=== PATIENT | male | born 1995 | race African-American/Black ===

== ENCOUNTER 2020-09-27 17:03 | Emergency (ER) | payer SELFPAY ==
[2020-09-27 17:20] VITALS: BP 127/84; PULSE 87; RESP 16; O2SAT 97; BMI 35.9
--- NOTE | 2020-09-27 18:00 | PC.NURSE ---
PT ASKING TO LEAVE BECAUSE HIS NOSE HAD STOPPED BLEEDING. PT ASKED TO WAIT FOR MEDICAL SXAM. PT AGREEABLE.
--- NOTE | 2020-09-27 18:33 | ED_ITS ---
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 It eventually stopped on its own. Patient has had similar nosebleed a few weeks ago. He has never seen an ear nose and throat doctor. He notes he has chronic nasal congestion and postnasal drip which he attributes to working in a freezer. He denies any history of high blood pressure. He denies any headache or shortness of breath. Related Data Previous Rx's Medication Instructions Recorded fkqhulxophcwpjg-kuyprgwvi-EK 7.5 ml PO Q4-6H PRN #473 ml 09/27/20 [Bromfed DM] oxymetazoline [Afrin 4 spray INTRANASAL ONCE PRN 1 Days 09/27/20 (oxymetazoline)] #15 ml Allergies Allergy/AdvReac Type Severity Reaction Status Date / Time No Known Allergies Allergy Verified 09/27/20 17:22 Review of Systems Constitutional: Constitutional: Denies fever(s) Eyes: Eyes: Reports no additional eye complaints ENT: Reports epistaxis and Reports nasal congestion Cardiovascular: Cardiovascular: Denies dyspnea Respiratory: Respiratory: Reports cough and Denies dyspnea Neurologic: Denies Sensory deficit (Neuro) [facility] Past Medical History Medical History (Updated 09/27/20 @ 18:14 by Scott Sharif MD) Patient denies significant medical history Social History Social History Advance Directives: No Advance Directives Information Provided: No Physical Exam Vital Signs: Vital Signs: Last Vital Signs Pulse 87 09/27/20 17:20 Resp 16 09/27/20 17:20 BP 127/84 09/27/20 17:20 Pulse Ox 97 09/27/20 17:20 Body Mass Index 35.9 Const: General: cooperative, no acute distress and alert Orientation/consciousness: patient oriented x3 HENMT: Head: Yes normal to inspection General nose exam: Normal external nose present and Epistaxis present (No current bleeding, irritated mucosa in the area of Hesselbach's plexus R) on the right Mouth: Normal oral and palatal mucosa present Throat: Yes posterior oropharynx normal (No blood in the pharynx) Eyes: General: appearance normal, both eyes and all related structures Eyelids: Yes eyelids normal Conjunctivae: conjunctivae normal Pupils: Equal, round and reactive pupils present Neck: Neck: Yes normal visual inspection and Yes supple Chest: Chest palpation & inspection: normal inspection of the chest Resp: Effort & Inspection: normal respiratory effort Auscultation: clear to auscultation bilaterally Cardio: Rate: regular rate Rhythm: regular rhythm Heart sounds: S1 normal heart sound present, S2 normal heart sound present, no gallops, no murmurs and no rubs GI: Palpation (GI): Soft to palpation, nontender and Other GI palpation findings present (Non-distended) Auscultation: normal bowel sounds Skin: General skin exam: no rashes or lesions noted Neuro: General: patient oriented x3, no focal motor deficits and CN's II-XI intact bilaterally Cranial nerves: Yes Equal, round and reactive pupils present Cognition (Neuro): normal cognition Motor exam (neuro): 5/5 motor strength present throughout Sensory Exam: No Sensory deficit (Neuro) Extrem: General: Yes normal to inspection and Yes no pedal edema Psych: Appearance: grossly normal Affect: normal affect MDM - Epistaxis MDM Narrative Medical decision making narrative: Patient with an anterior nosebleed on the right, has chronic nasal symptoms due to working in a freezer. Hemorrhage commanding the patient tried using Afrin spray after gently blowing his nose if he has a nose bleed, then applying direct pressure for 20 minutes. Also prescribing and Bromfed to use for his chronic congestion and cough. No active bleeding on my exam either in the nose or down the nasopharynx Discharge Plan Discharge Clinical Impression: Epistaxis, Chronic nasal congestion Patient Disposition: Home, Self-Care Instructions: Decongestant/Expectorant (By mouth), Nosebleed (ED) Additional Instructions: If bleeding recurs from her nose, gently blow your nose and spray 4 sprays of Afrin into the nose, then pinch it without letting up for 20 minutes. Use the Bromfed as prescribed for cough and congestion. Follow-up with an Ear Nose Throat physician if you have persistent intermittent nose bleeds. Prescriptions: New wlnafpbswxvzhyo-mywduslyi-RZ [Bromfed DM] 2-30-10 mg/5 mL syrup 7.5 ml PO Q4-6H PRN (Reason: sinus symptoms) Qty: 473 RF: 0 Afrin (oxymetazoline) 0.05 % mist 4 spray intranasal ONCE PRN (Reason: Nose bleed) 1 Days Qty: 15 RF: 0 Interventions: ED Discharge Assessment Last Done: 09/27/20 18:22 Discharge Date/Time: 09/27/20 18:31
== END 2020-09-27 18:31 | disposition home or self-care (01) ==
PROVIDERS: Emergency Provider Emergency Medicine
DX: R04.0 Epistaxis (principal); R09.81 Nasal congestion
CPT/HCPCS: 99283

== ENCOUNTER 2020-10-20 21:27 | Emergency (ER) | payer OTHER, SELFPAY ==
--- NOTE | ~2020-10-20 | XR_ITS ---
EXAMINATION: XR CHEST CLINICAL INFORMATION: Cough COMPARISON: None TECHNIQUE: Frontal portable view of the chest was obtained. 10:25 PM FINDINGS: No significant abnormality is noted involving the heart, lungs, mediastinum, bony thorax or soft tissues. XR/XR chest 1V IMPRESSION: Unremarkable examination.
[2020-10-20 22:31] VITALS: BP 152/83; PULSE 81; RESP 18; TEMP 36.8; O2SAT 100; BMI 34.7
[2020-10-20 23:03] LABS: COVID-19 Test Negative (Negative)
--- NOTE | 2020-10-21 00:16 | ED_ITS ---
HPI - URI/Sore Throat General Chief Complaint: Upper Respiratory Symptoms Stated Complaint: cough Source: patient Mode of arrival: ambulatory Limitations: no limitations History of Present Illness HPI Narrative: 25-year-old male with no significant past medical history presents with upper respiratory symptoms for approximately 1 day. States to have a productive cough with thick yellow mucus, intermittent fevers and chills. Patient has not been vaccinated for COVID and is requesting COVID testing at this time. Patient does not report any other symptoms. Denies chest pain or pressure, palpitations, shortness of breath, shortness of breath on exertion, hemoptysis, abdominal pain, abdominal distention, nausea, vomiting, diarrhea, constipation, dysuria, hematuria, and edema. MD elicited complaint: fever, cough and nasal congestion Onset (ago): day(s) (One) Consistency: constant Severity: moderate Description of mucous: watery and yellow Able to tolerate fluids by mouth: Yes Exacerbating factors: exertion Relieving factors: nothing Context: sick contacts Associated symptoms: fever, chills, myalgias, nasal congestion and cough Treatments prior to arrival: none Related Data Previous Rx's Medication Instructions Recorded wkjdrjijfiimdxe-jjzaemwtbwckflp-RG 7.5 ml PO Q4-6H PRN #473 ml 09/27/20 2 mg-30 mg-10 mg/5 mL oral syrup (Bromfed DM) oxymetazoline 0.05 % nasal mist 4 spray INTRANASAL ONCE PRN 1 Days 09/27/20 (Afrin (oxymetazoline)) #15 ml benzonatate 100 mg capsule 100 mg PO TID PRN #30 cap 10/21/20 (Tesmarcinon Donna) Allergies Allergy/AdvReac Type Severity Reaction Status Date / Time No Known Allergies Allergy Verified 10/20/20 22:31 Review of Systems Review of Systems: Constitutional: positive Fever, positive Chills, positive fatigue, positive Malaise ENT/Mouth: positive sore throat, positive runny nose Eyes: No Discharge Cardiovascular: No Chest Pain, No SOB Respiratory: Positive Cough, positive Sputum, No Wheezing, No Smoke Exposure, No Dyspnea Gastrointestinal: No Nausea, No Vomiting, No Diarrhea Genitourinary: no irregular bleeding, No Dysuria, No Urinary Frequency, No Hematuria, No Urinary Incontinence, No Urgency, No Flank Pain, Musculoskeletal: positive Myalgia Skin: No rash Neuro: No Headache Yes all other systems are reviewed and are negative [facility] Past Medical History Attestation statement: The following information was validated with the patient. Medical History (Updated 10/21/20 @ 00:24 by Viky Barker NP) Patient denies significant medical history Social History Social History Advance Directives: No Physical Exam Vital Signs: Vital Signs: Last Vital Signs Temp 98.3 F 10/20/20 22:31 Pulse 81 10/20/20 22:31 Resp 18 10/20/20 22:31 BP 152/83 H 10/20/20 22:31 Pulse Ox 100 10/20/20 22:31 Body Mass Index 34.7 Appearance: Alert. Oriented X3. Mild distress. Appears tired. Eyes: Pupils equal, round and reactive to light. Conjunctiva non erythematous, sclera nonicteric. ENT: Pharynx normal. Moist mucous membranes. Neck: Normal inspection. Neck supple. No cervical lymphadenopathy noted. CVS: Normal heart rate and rhythm. Pulses normal. Respiratory: No respiratory distress. Lung sounds clear to auscultation all lobes. Abdomen: Soft and nontender. Skin: Skin warm and dry. Normal skin color. Normal skin turgor. Extremities: No lower extremity edema. Gait well balanced well coordinated. Strength 5/5 to all extremities. Neuro: No motor deficit. No sensory deficit. Cranial nerves 2-12 intact. No focal neural deficits. Course Course Course Narrative: 25-year-old male presents with upper respiratory symptoms. Requesting COVID-19 testing., patient is afebrile, appears nontoxic, alert oriented x4. COVID-19 test is negative. Chest x-ray is negative. Plan of care is to discharge home with supportive measures. Patient verbalized understanding of and agrees to plan of care discharge home. MDM - URI/Sore Throat Differential Diagnosis Differential diagnosis: Likely upper respiratory infection, sinusitis, viral infection, bronchitis, influenza and pharyngitis Medical Records Attestation: I reviewed the patient's medical records. Lab Data Attestation: I reviewed the patient's lab results. Labs: Lab Results 10/20/20 Range/Units 22:42 COVID-19 (APRYL) Negative (Negative) COVID-19 Clin Com See Note Imaging Data Chest x-ray: Attestation: I personally reviewed and interpreted this imaging study as follows: Radiologist's impression: EXAMINATION: XR CHEST CLINICAL INFORMATION: Cough COMPARISON: None TECHNIQUE: Frontal portable view of the chest was obtained. 10:25 PM FINDINGS: No significant abnormality is noted involving the heart, lungs, mediastinum, bony thorax or soft tissues. XR/XR chest 1V IMPRESSION: Unremarkable examination. ? Discharge Plan Discharge Clinical Impression: Viral infection Patient Disposition: Home, Self-Care Instructions: Viral Syndrome (ED) Additional Instructions: You were evaluated for upper respiratory symptoms. Your COVID-19 test is negati ve. Thank you for choosing this emergency department for evaluation. Please follow-up with primary care physician as needed. Return to the emergency department for any new, concerning, or worsening symptoms. Prescriptions: New benzonatate [Tessalon Perles] 100 mg capsule 100 mg PO TID PRN (Reason: cough) Qty: 30 RF: 0 No Action icqadcvbesuubec-jeocvyade-KK [Bromfed DM] 2-30-10 mg/5 mL syrup 7.5 ml PO Q4-6H PRN (Reason: sinus symptoms) Qty: 473 RF: 0 Afrin (oxymetazoline) 0.05 % mist 4 spray intranasal ONCE PRN (Reason: Nose bleed) 1 Days Qty: 15 RF: 0 Stand Alone Forms: Work/School Release Interventions: ED Discharge Assessment Last Done: 10/21/20 00:59 Discharge Date/Time: 10/21/20 01:02
== END 2020-10-21 01:02 | disposition home or self-care (01) ==
PROVIDERS: Emergency Provider Internal Medicine
DX: B34.9 Viral infection, unspecified (principal); Z20.822 Contact with and (suspected) exposure to COVID-19; R50.9 Fever, unspecified
CPT/HCPCS: 36415; 71045; 87635; 99283

== ENCOUNTER 2020-11-04 17:17 | Emergency (ER) | payer OTHER, SELFPAY ==
[2020-11-04 19:57] VITALS: BP 133/78; PULSE 83; RESP 18; TEMP 37.3; O2SAT 99; BMI 35.2
--- NOTE | 2020-11-04 20:13 | ED_ITS ---
HPI - Dental/Oral General Chief complaint: Dental/Oral Stated complaint: dental pain Time Seen by Provider: 11/04/20 20:13 Source: patient Mode of arrival: ambulatory Limitations: no limitations History of Present Illness HPI Narrative: 25 yo male presenting with right lower dental pain with associated facial swelling for the last 2 weeks. He noticed the slight facial swelling today and called a dentist to be seen tomorrow. Dentist advised him to be evaluated today given his reports of swelling. He denies fever, chills. He is able to fully open his jaw and is having no issues eating. He is not taking any medication for the pain. He has a known cavity filling in the affected molar. MD Complaint: tooth pain Location: Tooth # (32) Onset (ago): week(s) (2) Duration: intermittent Severity: moderate Severity scale (1-10): 6 Relieving factors: nothing Exacerbating factors: nothing Context: history of dental caries and poor dental care Treatment prior to arrival: none Related Data Previous Rx's Medication Instructions Recorded zntlqfbrjxvcomf-dwuqngzubmqjjgt-ZR 7.5 ml PO Q4-6H PRN #473 ml 09/27/20 2 mg-30 mg-10 mg/5 mL oral syrup (Bromfed DM) oxymetazoline 0.05 % nasal mist 4 spray INTRANASAL ONCE PRN 1 Days 09/27/20 (Afrin (oxymetazoline)) #15 ml benzonatate 100 mg capsule 100 mg PO TID PRN #30 cap 10/21/20 (Tessalon Perles) amoxicillin 875 mg-potassium 1 tab PO BID #14 tab 11/04/20 clavulanate 125 mg tablet (Augmentin) ibuprofen 800 mg tablet 800 mg PO Q8H PRN #20 tab 11/04/20 Allergies Allergy/AdvReac Type Severity Reaction Status Date / Time No Known Allergies Allergy Verified 10/20/20 22:31 Review of Systems Constitutional: Constitutional: Denies chills, Denies fever(s) and Reports headache(s) Eyes: Eyes: Reports no additional eye complaints ENT: Denies bleeding gums, Reports dental pain, Denies dysphagia, Denies otalgia, Reports facial pain, Reports headache(s), Denies lip swelling, Denies mouth pain, Denies neck pain, Denies sore throat, Denies throat swelling and Denies tongue swelling Cardiovascular: Cardiovascular: Denies chest pain Respiratory: Respiratory: Denies cough Gastrointestinal: Gastrointestinal: Denies dysphagia Musculoskeletal: Musculoskeletal: Denies neck pain Neurologic: Reports headache(s) Hematologic/Lymphatic: Hematologic/Lymphatic: Denies easy bleeding and Denies easy bruising Allergic/Immunologic: Allergic/Immunologic: Denies lip swelling, Denies throat swelling and Denies tongue swelling [facility] Past Medical History Attestation statement: The following information was validated with the patient. Medical History (Updated 11/04/20 @ 20:26 by NANCY Barton) Patient denies significant medical history Social History Social History Advance Directives: No Advance Directives Information Provided: Yes Physical Exam Vital Signs: Vital Signs: Last Vital Signs Temp 99.1 F 11/04/20 19:57 Pulse 83 11/04/20 19:57 Resp 18 11/04/20 19:57 BP 133/78 11/04/20 19:57 Pulse Ox 99 11/04/20 19:57 Body Mass Index 35.2 Const: General: cooperative, healthy appearing, comfortable and no acute distress Nutritional Appearance: average body habitus Orientation/consciousness: patient oriented x3 Limitations: no limitations HENMT: Head: Yes normal to inspection Ears: hearing grossly normal bilaterally General nose exam: Normal external nose present and Normal nares present Face and sinus: Yes normal facial exam and Yes face symmetric Mouth: Normal oral and palatal mucosa present, lip normal, tongue normal, Normal salivary glands and ducts present, oropharynx normal and moist mucous membranes Teeth and gingiva: abnormal tooth and associated gingiva lower right third molar tender and enamel fractured; Negative for well fixed, without any associated gingival edema and without associated gingival fluctuance and gingiva abnormal tender; Negative for without any purulent discharge, not erythematous and not discolored Throat: Yes posterior oropharynx normal, Yes tonsils normal and Yes uvula midline Eyes: General: appearance normal, both eyes and all related structures Neck: Neck: Yes normal visual inspection, Yes no lymphadenopathy, Yes trachea midline and Yes supple Chest: Chest palpation & inspection: normal inspection of the chest Resp: Effort & Inspection: normal respiratory effort and able to speak in complete sentences Skin: General skin exam: no rashes or lesions noted Neuro: General: patient oriented x3 Extrem: General: Yes normal to inspection Course Course Course Narrative: 25 y/o male presenting with right lower dental pain x2 weeks. He reports sensation of right facial swelling that started today but his face is symmetrical on exam. No manidbular tenderness. No paplable abscess on exam. He is stable for discharge home with PO abx, NSAID and plan to f/u with dentist tomorrow at 9am. Patient agrees with plan. Discharge Plan Discharge Clinical Impression: Toothache Patient Disposition: Home, Self-Care Instructions: Toothache (ED) Additional Instructions: Follow up with your dentist tomorrow. Take the prescribed antibiotic and anti-inflammatory as directed. Use ice to the right side of you face as needed for pain. Prescriptions: New ibuprofen 800 mg tablet 800 mg PO Q8H PRN (Reason: pain) Qty: 20 RF: 0 amoxicillin-pot clavulanate [Augmentin] 875-125 mg tablet 1 tab PO BID Qty: 14 RF: 0 No Action yubcaivjybcedij-ccjdazife-SL [Bromfed DM] 2-30-10 mg/5 mL syrup 7.5 ml PO Q4-6H PRN (Reason: sinus symptoms) Qty: 473 RF: 0 Afrin (oxymetazoline) 0.05 % mist 4 spray intranasal ONCE PRN (Reason: Nose bleed) 1 Days Qty: 15 RF: 0 benzonatate [Tessalon Perles] 100 mg capsule 100 mg PO TID PRN (Reason: cough) Qty: 30 RF: 0 Stand Alone Forms: Work/School Release Interventions: ED Discharge Assessment Last Done: 11/04/20 20:45 Discharge Date/Time: 11/04/20 20:46
== END 2020-11-04 20:46 | disposition home or self-care (01) ==
PROVIDERS: Emergency Provider Emergency Medicine
DX: K08.89 Other specified disorders of teeth and supporting structures (principal)
CPT/HCPCS: 99283

== ENCOUNTER 2020-11-16 21:18 | Emergency (ER) | payer OTHER, SELFPAY ==
[2020-11-16 22:06] VITALS: BP 130/90; PULSE 70; RESP 18; TEMP 36.7; O2SAT 98; BMI 35.2
[2020-11-16] MEDS: Ibuprofen 600 MG TABLET PO (22:12)
--- NOTE | 2020-11-17 00:13 | ED_ITS ---
HPI - Dental/Oral General Chief complaint: Dental/Oral Stated complaint: dental pain Time Seen by Provider: 11/17/20 00:12 Source: patient Mode of arrival: ambulatory History of Present Illness HPI Narrative: 25-year-old male without significant past medical history presents with right lower number 32 pain. Patient denies any fever chills and is currently on antibiotics. He states that he was supposed to have the tooth removed on Tuesday, however did not keep the appointment. Patient denies any difficulty with breathing or swallowing. Teeth map: 1. Dental curt Related Data Previous Rx's Medication Instructions Recorded ogzhidrgoyfhsuk-ewnvwvjaeibgpve-ZV 7.5 ml PO Q4-6H PRN #473 ml 09/27/20 2 mg-30 mg-10 mg/5 mL oral syrup (Bromfed DM) oxymetazoline 0.05 % nasal mist 4 spray INTRANASAL ONCE PRN 1 Days 09/27/20 (Afrin (oxymetazoline)) #15 ml benzonatate 100 mg capsule 100 mg PO TID PRN #30 cap 10/21/20 (Tessalon Perles) amoxicillin 875 mg-potassium 1 tab PO BID #14 tab 11/04/20 clavulanate 125 mg tablet (Augmentin) ibuprofen 800 mg tablet 800 mg PO Q8H PRN #20 tab 11/04/20 Allergies Allergy/AdvReac Type Severity Reaction Status Date / Time No Known Allergies Allergy Verified 10/20/20 22:31 Review of Systems Review of Systems: Pertinent positives and negatives as stated in HPI 10 point review of systems otherwise negative. PMFSH Past Medical History Source: nursing notes reviewed Medical History Patient denies significant medical history Social History Social History Advance Directives: No Advance Directives Information Provided: No Physical Exam Vital Signs: Vital Signs: Last Vital Signs Temp 98.0 F 11/16/20 22:06 Pulse 70 11/16/20 22:06 Resp 18 11/16/20 22:06 BP 130/90 H 11/16/20 22:06 Pulse Ox 98 11/16/20 22:06 Body Mass Index 35.2 VITAL SIGNS: Reviewed. GENERAL: Well developed, well nourished, in no acute distress. HEAD: Normocephalic/atraumatic EYES: PERRLA, EOMI OROPHARYNX: no oral lesions noted, posterior pharynx clear and obvious #32 dental curt LUNGS: Normal breath sounds. No adventitious sounds or accessory muscle use. SpO2<98> CARDIOVASCULAR: Regular rate and rhythm without noted murmurs ABDOMEN: Soft, non-tender, non-distended with bowel sounds. SKIN: Inspection of the skin reveals no rashes NEUROLOGIC: Alert and oriented x 4. Strength and sensation to light touch were grossly intact x 4. Course Course Course Narrative: 25-year-old male with history and clinical presentation consistent with dental infection that is currently on antibiotics who comes in with complaints of continued pain. Patient provided with topical benzocaine swab and strongly recommended to follow up with the dentist on Tuesday for res cheduling of his dental extraction. Discharge Plan Discharge Clinical Impression: Toothache Patient Disposition: Home, Self-Care Instructions: Toothache (ED) Additional Instructions: 1. Tylenol 1000 mg, orally, every 6 hours as needed for pain control. Do not exceed 4000 mg within 24 hours. 2. Ibuprofen 400 mg, orally with milk or food, every 6 hours as needed for pain control. 3. Follow-up with the dentist tomorrow morning/this morning for definitive treatment of your tooth. Return to the ER for acute worsening of symptoms. Prescriptions: No Action mwugrefxztxzgqv-fcyikxulz-HI [Bromfed DM] 2-30-10 mg/5 mL syrup 7.5 ml PO Q4-6H PRN (Reason: sinus symptoms) Qty: 473 RF: 0 Afrin (oxymetazoline) 0.05 % mist 4 spray intranasal ONCE PRN (Reason: Nose bleed) 1 Days Qty: 15 RF: 0 ibuprofen 800 mg tablet 800 mg PO Q8H PRN (Reason: pain) Qty: 20 RF: 0 amoxicillin-pot clavulanate [Augmentin] 875-125 mg tablet 1 tab PO BID Qty: 14 RF: 0 benzonatate [Tessalon Perles] 100 mg capsule 100 mg PO TID PRN (Reason: cough) Qty: 30 RF: 0 Referrals: Physician,Unknown [Primary Care Provider] - 2 days
== END 2020-11-17 00:26 | disposition home or self-care (01) ==
PROVIDERS: Emergency Provider Student in an Organized Health Care Education/Training Program
DX: K04.7 Periapical abscess without sinus (principal); K08.89 Other specified disorders of teeth and supporting structures; Z79.899 Other long term (current) drug therapy
CPT/HCPCS: 99284